=== PATIENT | female | born 1985 | race Caucasian/White ===

== ENCOUNTER → 2019-12-23 | Outpatient (CLI) | payer MEDICAID ==
[2019-12-23 12:39] LABS: EOSINOPHILS % (AUTO) 1 % (0-10); HEMATOCRIT 40 % (35-52); HEMOGLOBIN 13.7 G/DL (11.5-16.0); LYMPHOCYTES % (AUTO) 27 % (12-44); MEAN CORPUSCULAR HEMOGLOBIN 30 PG (25-34); MEAN CORPUSCULAR HGB CONC 35 G/DL (32-36); MEAN CORPUSCULAR VOLUME 88 FL (80-99); MEAN PLATELET VOLUME 10.1 FL (7.4-10.4); MONOCYTES % (AUTO) 5 % (0-12); NEUTROPHILS % (AUTO) 67 % (42-75); PLATELET COUNT 244 10^3/uL (130-400); RED CELL DISTRIBUTION WIDTH 12.5 % (10.0-14.5); WHITE BLOOD COUNT 8.1 10^3/uL (4.3-11.0)
[2019-12-23 12:40] LABS: BASOPHILS % (AUTO) 0 % (0-10); EOSINOPHILS # (AUTO) 0.1 10^3/uL (0.0-0.3); LYMPHOCYTES # (AUTO) 2.2 X 10^3 (1.0-4.0); MONOCYTES # (AUTO) 0.4 X 10^3 (0.0-1.0); NEUTROPHILS # (AUTO) 5.5 X 10^3 (1.8-7.8)
== END ==
LOC: LAB FS 10:57
PROVIDERS: ATTEND Family Medicine
DX: Z34.90 Encounter for supervision of normal pregnancy, unspecified, unspecified trimester (principal)
CPT/HCPCS: 36415; 80055; 86703; 87088

== ENCOUNTER → 2020-01-19 | Outpatient (CLI) | payer MEDICAID | LOC: LABNPT 15:10 | PROVIDERS: ATTEND Family Medicine | DX: Z34.80 Encounter for supervision of other normal pregnancy, unspecified trimester (principal) | CPT/HCPCS: 87491; 87591 ==

== ENCOUNTER 2020-02-08 15:05 | Emergency (ER) | payer MEDICAID ==
[~2020-02-08] VITALS: Ht 157.5 cm; Wt 58.1 kg
--- OUTSIDE RECORDS SUMMARY | 2020-02-08 15:12 | XMS REPORT | Continuity of Care Document ---
Author Organization Unknown Address Unknown Phone Unavailable Allergies There is no data. Medications There is no data. Problems Date Dx Coded Attending Type Code Diagnosis Diagnosed By 12/24/2019 ALMA ROSA GAUTHIER MD Ot Z34.90 ENCNTR FOR SUPRVSN OF NORMAL , 01/06/2020 ALMA ROSA GAUTHIER MD Ot Z34.90 ENCNTR FOR SUPRVSN OF NORMAL , 01/21/2020 ALMA ROSA GAUTHIER MD Ot Z34.80 ENCOUNTER FOR SUPRVSN OF NORMAL PREGNANC 01/22/2020 ALMA ROSA GAUTHIER MD Ot Z34.80 ENCOUNTER FOR SUPRVSN OF NORMAL PREGNANC Procedures There is no data. Results Test Result Range HSV 1/2 IGG,TYPE SPECIFIC AB HERPESELECT - 10/14/19 00:00 HSV 1 IGG, TYPE SPECIFIC AB 1.55 index N RG HSV 2 IGG, TYPE SPECIFIC AB <0.90 index NRG CULTURE, VIRAL (HSV W/TYPING) - 10/15/19 13:00 SOURCE: VAGINAL NRG HSV CULTURE: NOT ISOLATED NRG Chlamydia trachomatis DNA detection by p robe and signal amplification method - 01/19/20 15:11 Chlamydia trachomatis DNA detection by p robe and target amplification method Not Detected Not Detected Neisseria gonorrhoeae DNA detection by p robe and signal amplification method - 01/19/20 15:11 Gonorrhea amp DNA-urine Not Detected No t Detected Encounters ACCT No. Visit Date/Time Discharge Status Pt. Type Provider Facility Loc./Unit Complaint [id number] 12/23/2019 10:00:00 12/23/2019 23:59: 59 CLS Outpatient COSMO CHILDS [facility] [id number] 10/15/2019 12:30:00 Document Registration [id number] 10/14/2019 16:00:00 Document Registration [id number] 01/19/2020 15:10:00 020 23:59:59 CLS Outpatient ALMA ROSA GAUTHIER MD [facility] LABNPT [id number] 12/23/2019 10:57:00 020 23:59:59 CLS Outpatient ABRAHAN MCMAHAN, ALMA ROSA Li [facility] LAB FS SUPERVISION OF DANNY SALDANA [id number] 02/08/2020 15:08:[address] Emergency YOVANA STROUD DO [facility] ojshua ER 16 WKS PREG/FALL/FLUID LOSS
[2020-02-08 16:08] LABS: BILIRUBIN,URINE NEGATIVE (NEGATIVE); CLARITY,URINE CLEAR; COLOR,URINE YELLOW; GLUCOSE, URINE (UA) NEGATIVE (NEGATIVE); KETONES,URINE NEGATIVE (NEGATIVE); LEUKOCYTE ESTERASE ,URINE NEGATIVE (NEGATIVE); NITRITE,URINE NEGATIVE (NEGATIVE); PH,URINE 7.5 (5-9); PROTEIN,URINE NEGATIVE (NEGATIVE)
--- NOTE | 2020-02-08 16:13 | ED Fall/Injury ---
General Chief Complaint: Trauma-Non Activation Stated Complaint: 16 WKS PREG/FALL/FLUID LOSS Nursing Triage Note: FELL AT WORK AND HIT HEAD, BACK, COCCYX. 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 LMP--UNSURE, STATES EDC IS 07/26/20 PT IS AB 1 HAS HAD BACK PROBLEMS "BULGING DISCS" OB: DR. GAUTHIER--LAST VISIT 2-3 WEEKS AGO, HAD ULTRASOUND LAST WEEK. NEXT APPOINTMENT IS IN 1 WEEK 02/15/20 PCP: DR. COSMO CHILDS, [facility] Allergies and Home Medications Allergies Coded Allergies: No Known Drug Allergies (Unverified , 02/08/20) Patient Home Medication List Home Medication List Reviewed: Yes Review of Systems Review of Systems Constitutional: no symptoms reported Eyes: No Symptoms Reported Ears, Nose, Mouth, Throat: no symptoms reported Respiratory: no symptoms reported Cardiovascular: no symptoms reported Gastrointestinal: no symptoms reported Genitourinary: see HPI : Yes Expected Date of Delivery: Jul 26, 2020 Musculoskeletal: see HPI Skin: no symptoms reported Psychiatric/Neurological: No Symptoms Reported Past Xclawsj-Gnopsk-Hobuji Hx Past Med/Social Hx: Reviewed and Corrections made Patient Social History Alcohol Use: Denies Use Recreational Drug Use: No Smoking Status: Never a Smoker 2nd Hand Smoke Exposure: Yes Recent Foreign Travel: No Contact w/Someone Who Travel: No Recent Infectious Disease Expo: No Recent Hopitalizations: No Physical Abuse: No Sexual Abuse: No Mistreated: No Fear: No Seasonal Allergies Seasonal Allergies: No Past Medical History Surgeries: Yes Section Respiratory: No Cardiac: No Neurological: No Hx : 4 Hx Para: 2 Hx Total # of Abortions (Sp): 1 (NO D&C) Reproductive Disorders: No Genitourinary: No Gastrointestinal: No Musculoskeletal: Yes (BULGING DISC) Degenerate Disk Disease Endocrine: No HEENT: No Cancer: No Psychosocial: No Integumentary: No Blood Disorders: No Physical Exam Vital Signs Vital Signs - First Documented 02/08/20 15:25 Temp 36.7 Pulse 92 Resp 18 B/P (MAP) 102/73 (83) O2 Delivery Room Air Capillary Refill : Less Than 3 Seconds Height, Weight, BMI Height: '" Weight: lbs. oz. kg; 23.00 BMI Method: General Appearance: WD/WN, no apparent distress, other (WALKS UPRIGHT AND MOVES WITHOUT DIFFICULTY) HEENT: PERRL/EOMI, normal ENT inspection, other (NO EXTERNAL EVIDENCE OF TRAUMA TO HEAD) Neck: non-tender, full range of motion, supple, normal inspection Cardiovascular: normal peripheral pulses, regular rate, rhythm, no edema, no JVD, no murmur Respiratory: chest non-tender, normal breath sounds, no respiratory distress, no accessory muscle use Gastrointestinal: normal bowel sounds, non tender, soft, other (GRAVID UTERUS 3 FB'S BELOW UMBILICUS; FHT'S 162) Pelvic: normal external exam, discharge (SMALL AMOUNT OF NORMAL APPEARING WHITE DISCHARGE); No tender w/ cervical motion, No tender adnexa, No tender uterus, No vaginal bleeding; other (NITRAZINE/AMNIO TEST NEGATIVE) Back: no CVA tenderness, other (TENDERNESS TO LEFT SI JOINT AREA. NO EXTERNAL E VIDENCE OF TRAUMA) Extremities: normal range of motion, non-tender, normal inspection, no pedal edema, no calf tenderness, normal capillary refill Neurologic/Psychiatric: score caller II-XII nml as tested, no motor/sensory deficits, alert, normal mood/affect, oriented x 3 Skin: normal color, warm/dry [place] Coma Score Best Eye Response: (4) Open Spontaneously Best Verbal Response: (5) Oriented Best Motor Response: (6) Obeys Commands Talon Total: 15 Progress/Results/Core Measures Results/Orders Lab Results Laboratory Tests Test 02/08/20 15:57 Range/Units Urine Color YELLOW Urine Clarity CLEAR Urine pH 7.5 5-9 Urine Specific [place] 1.010 L 1.016-1.022 Urine Protein NEGATIVE NEGATIVE Urine Glucose (UA) NEGATIVE NEGATIVE Urine Ketones NEGATIVE NEGATIVE Urine Nitrite NEGATIVE NEGATIVE Urine Bilirubin NEGATIVE NEGATIVE Urine Urobilinogen 0.2 < = 1.0 MG/DL Urine Leukocyte Esterase NEGATIVE NEGATIVE Urine RBC (Auto) NEGATIVE NEGATIVE Urine RBC NONE /HPF Urine WBC NONE /HPF Urine Squamous Epithelial Cells 5-10 /HPF Urine Crystals NONE /LPF Urine Bacteria TRACE /HPF Urine Casts NONE /LPF Urine Mucus NEGATIVE /LPF Urine Culture Indicated NO My Orders Orders - YOVANA STROUD DO Ua Culture If Indicated (02/08/20 16:02) Heart Tones (02/08/20 16:05) Amnio Test (02/08/20 16:05) Vital Signs/I&O 02/08/20 15:25 Temp 36.7 Pulse 92 Resp 18 B/P (MAP) 102/73 (83) O2 Delivery Room Air Blood Pressure Mean: 83 Progress Progress Note : Progress Note FHT'S 162 NITRAZINE/AMNIO TEST--NEGATIVE. Departure Impression Primary Impression: Status post fall Additional Impressions: SACRAL-COCCYX INJURY Pain of left sacroiliac joint 16 weeks gestation of Disposition: 01 HOME, SELF-CARE Condition: Stable Departure-Patient Inst. Referrals: COSMO CHILDS MD (PCP) Primary Care Physician ALMA ROSA GAUTHIER MD (Family) Primary Care Physician Patient Instructions: Coccyx Injury (DC), Sacroiliac Joint Pain (DC), Preventing Falls, Activity During Add. Discharge Instructions: ICE TO SORE AREA AT 20 MINUTE INTERVALS TYLENOL NEEDED FOR PAIN FOLLOW UP WITH YOUR DR IN 1-2 DAYS FOR RECHECK FOLLOW UP WITH [facility] TOMORROW FOR RECHECK All discharge instructions reviewed with patient and/or family. Voiced understanding. Work/School Note: Work Release Form Date Seen in the Emergency Department: February 08, 2020 Restrictions: Need Release from Doctor YOVANA STROUD DO February 08, 2020 16:13
[2020-02-08 16:18] LABS: BACTERIA,URINE TRACE /HPF
[2020-02-08 16:54] VITALS: BP 119/67
== END 2020-02-08 16:54 | disposition home or self-care (01) ==
LOC: EDUNIT# 15:05 → ER 15:08
DX: O9A.212 Injury, poisoning and certain other consequences of external causes complicating pregnancy, second trimester (principal); S33.2XXA Dislocation of sacroiliac and sacrococcygeal joint, initial encounter; R40.2142 Coma scale, eyes open, spontaneous, at arrival to emergency department; R40.2252 Coma scale, best verbal response, oriented, at arrival to emergency department; R40.2362 Coma scale, best motor response, obeys commands, at arrival to emergency department; Z77.22 Contact with and (suspected) exposure to environmental tobacco smoke (acute) (chronic); Z3A.16 16 weeks gestation of pregnancy; W01.198A Fall on same level from slipping, tripping and stumbling with subsequent striking against other object, initial encounter
CPT/HCPCS: 81000

== ENCOUNTER 2020-04-28 17:40 | Outpatient (CLI) | payer MEDICAID ==
[~2020-04-28] VITALS: Ht 157.5 cm; Wt 62.3 kg
[2020-04-28 17:45] VITALS: BP 118/60
--- NOTE | 2020-04-28 17:47 | NUR ---
NIMA GLEZ presented to unit via AMB from HOME, accompanied by MOTHER, with c/o CONTRACTIONS. NIMA GLEZ weighed, gowned, UNABLE TO VOID and to bed. 1748 EF and PRICILLAO applied, VS taken. NIMA GLEZ oriented to bed controls, call light, TV, heat, and A/C controls.
[2020-04-28 18:00] VITALS: BP 118/60
[2020-04-28 18:24] LABS: BILIRUBIN,URINE NEGATIVE (NEGATIVE); CLARITY,URINE CLEAR; COLOR,URINE YELLOW; GLUCOSE, URINE (UA) NEGATIVE (NEGATIVE); KETONES,URINE TRACE (NEGATIVE); LEUKOCYTE ESTERASE ,URINE NEGATIVE (NEGATIVE); NITRITE,URINE NEGATIVE (NEGATIVE); PROTEIN,URINE NEGATIVE (NEGATIVE)
[2020-04-28] MEDS ORDERED: PREN1TAB79 PO (18:25)
[2020-04-28] MEDS ORDERED: BUSP5TAB59 PO (18:25)
--- NOTE | 2020-04-28 18:27 | NUR ---
AMNIO SWAB PERFORMED AND NEGATIVE. SVE BY JOSE MARTIN HAYNES RN. EXT OS 1 CM/ THICK/INTERNAL OS CLOSED. FHR ARRHYTHMIA NOTED. FHR 135. CTXS IRREGULAR Q 3-16 MIN/ 40-120 SEC DURATION/MILD TO PALPATION.
[2020-04-28 18:30] VITALS: BP 118/60
[2020-04-28 18:33] LABS: BACTERIA,URINE TRACE /HPF
--- NOTE | 2020-04-28 18:37 | NUR ---
DR. FREGOSO CALLED DR GAUTHIER REGARDING PT ARRIVAL, IRREGULAR CTXS, AND FHR TRACING. ORDERS RECEIVED.
[2020-04-28] MEDS ORDERED: LACTATED RINGERS 1,000 ML IV SCH (18:45)
--- NOTE | 2020-04-28 18:46 | NUR ---
1000 CC LR STARTED IV WITH #20G INTRACATH TRA W/O RATE. SITE CLEAR.
[2020-04-28 18:50] VITALS: BP 116/58
--- NOTE | 2020-04-28 19:00 | NUR ---
UTERINE IRRITABILITY WITH OCC CTX NOTED. FHR 135. NOTICEABLE DECREASE IN FHR ARRHYTHMIA.
--- NOTE | 2020-04-28 19:05 | NUR ---
UP TO THE BATHROOM. + VOID.
[2020-04-28] MEDS ORDERED: ONDANSETRON 4 MG/2 ML (SDV) Z0FRAN ONE (20:27)
[2020-04-28] MEDS ORDERED: ONDANSETRON 4 MG/2 ML (SDV) Z0FRAN IVP ONE (20:30)
[2020-04-28] MEDS ORDERED: TERBUTALINE INJ 1 MG/ML (BRETHINE) AMP ONE (21:31)
[2020-04-28] MEDS ORDERED: hydrOXYzine (VISTARIL/ATARAX) 25 MG capsule/tablet ONE (21:32)
[2020-04-28 21:35] VITALS: BP 96/58
[2020-04-28] MEDS ORDERED: hydrOXYzine (VISTARIL/ATARAX) 25 MG capsule/tablet PO ONE (21:45)
[2020-04-28] MEDS ORDERED: TERBUTALINE INJ 1 MG/ML (BRETHINE) AMP SC ONE (21:45)
[2020-04-28] MEDS ORDERED: CITRIC ACID/SOB CIT (BICITRA) 30 ML UDC ONE (21:48)
[2020-04-28] MEDS: LACTATED RINGERS 1,000 ML IV SCH (21:53)
--- NOTE | 2020-04-28 21:54 | OB Triage Report ---
Standard Progress Note Progress Notes/Assess & Plan Date Seen by a Provider: Apr 28, 2020 Time Seen by a Provider: 17:45 Expected Date of Delivery: Jul 26, 2020 Gestational Age in Weeks: 27 Gestational Age in Days: 2 LMP/FLOWER Comment: FLOWER: 07/26/2020 Progress/Assessment & Plan Assessment: Uterine contractions, pre-term Nausea Anxiety RUQ abdominal pain Yu Mancia is a 35yo at 27w2d who presents to OB triage for abdominal pain. Tocolytic given, contractions subsided. RUQ ttp while in triage, patient to stay for RUQ abdominal ultrasound and pre-eclampsia workup. Plan: Observe overnight RUQ Abd US ordered HELLP labs LDH, uric acid, Pr/Cr s/p 1L LR bolus followed by 125ml/hr Hydroxyzine Terbutaline Dicyclomine Zofran HPI: Yu Mancia is a 35 yo at 27w2d without significant history who presented to OB triage with concerns for contractions given progressive abdominal pain that began earlier this afternoon at work. She has been working outside and feels very dehydrated. She also has symptoms of urinary frequency. She denies fever, vision changes, shortness of breath, chest pain/pressure, RUQ pain, dysuria, or LE swelling. -LOF, -VB, +FM, +CTX Interval history @ 2129: Patient now stating she is feeling very cold, she has full body aches. She endorses nausea and indigestion, requesting medications. VSS, UA negative for UTI. Contractions q2-11/23, terbutaline ordered and administered at 2144. Interval history @ 0: Pt sleeping in bed comfortably. Interval history @ 2244: Patient requesting to go home. Asked to stay and be monitored for 2 hours after terbutaline. Interval history @ 2344: s/p 2hr terbutaline. Patient endorsing return of abdominal pain. RUQ ttp. Ordered pre-eclampsia labs and RUQ US. Objective: Vitals: temp 36.6, HR 86, RR 18, BP 118/60, SpO2 97% General: NAD. Resting comfortably in bed HEENT: NCAT. EOMI. CV: RRR, peripheral pulses palpable Pulm: Nonlabored respirations Abd: Gravid, nonTTP, recheck @ 5 RUQ pain Ext: LE nonTTP, no edema SVE: 1/thick, soft consistency/high FHR: 140s, reactive; recheck @ 2345: 150s, reactive TOCO: 2-11/23, recheck @ 2345: 09/[address] Harrison. Diagnosis/Problems Diagnosis/Problems (1) contractions Status: Acute Assessment & Plan: - 1L LR bolus followed by 125ml/hr - Terbutaline (2) 27-28 completed weeks of gestation Assessment & Plan: - Discharge home on strict return precautions - Follow up with Dr. Harrison's office (3) RUQ pain Status: Acute Assessment & Plan: - RUQ Abdominal US and pre-eclampsia labs ordered ELISEO FREGOSO MD Apr 28, 2020 21:54
--- NOTE | 2020-04-28 21:55 | NUR ---
Pt requesting something for indigestion. notified order for bicitra received. Pt unable to tolerate full dose. Began to have dry heave
[2020-04-28] MEDS ORDERED: CITRIC ACID/SOB CIT (BICITRA) 30 ML UDC PO ONE (22:00)
[2020-04-28 23:00] VITALS: BP 85/47
--- NOTE | 2020-04-28 23:00 | NUR ---
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 Told pt that the dr would like her to stay until 2345. Pt is agreeable to plan.
[2020-04-29] VITALS: BP 99/55
--- NOTE | 2020-04-29 | NUR ---
RN went into room to discuss discharge. pt states that she is starting to feel pressure in her abdomen again. RN palpated abdomen to check toco placement. patient tensed in pain when palpating right quadrant. notified of new finding. labs ordered. Plan of care discussed with pt. Pt verbalized understanding.
[2020-04-29 00:25] LABS: BASOPHILS % (AUTO) 0 % (0-10); EOSINOPHILS % (AUTO) 0 % (0-10); HEMATOCRIT 33 % (35-52); HEMOGLOBIN 11.4 G/DL (11.5-16.0); LYMPHOCYTES % (AUTO) 7 % (12-44); MEAN CORPUSCULAR HEMOGLOBIN 31 PG (25-34); MEAN CORPUSCULAR HGB CONC 35 G/DL (32-36); MEAN CORPUSCULAR VOLUME 91 FL (80-99); MONOCYTES # (AUTO) 0.5 X 10^3 (0.0-1.0); MONOCYTES % (AUTO) 4 % (0-12); NEUTROPHILS # (AUTO) 12.9 X 10^3 (1.8-7.8); NEUTROPHILS % (AUTO) 89 % (42-75); PLATELET COUNT 196 10^3/uL (130-400); RED CELL DISTRIBUTION WIDTH 12.7 % (10.0-14.5); WHITE BLOOD COUNT 14.4 10^3/uL (4.3-11.0)
--- NOTE | 2020-04-29 00:30 | NUR ---
Report received from Zaire Sebastian rn.
[2020-04-29 00:47] LABS: ANISOCYTOSIS SLIGHT; ATYPICAL LYMPHOCYTES 3 %; BAND NEUTROPHILS 3 %; LYMPHOCYTES % (MANUAL) 8 %; MONOCYTES % (MANUAL) 2 %; NEUTROPHILS % (MANUAL) 84 %
[2020-04-29 00:52] LABS: ALANINE AMINOTRANSFERASE 11 U/L (0-55); ALBUMIN 3.3 GM/DL (3.2-4.5); ALKALINE PHOSPHATASE 57 U/L (40-136); BILIRUBIN,TOTAL 0.3 MG/DL (0.1-1.0); BUN/CREATININE RATIO 9; CALCIUM 8.1 MG/DL (8.5-10.1); CARBON DIOXIDE 19 MMOL/L (21-32); CHLORIDE 106 MMOL/L (98-107); CREATININE SERUM 0.56 MG/DL (0.60-1.30); GFR ESTIMATED > 60; GLUCOSE 130 MG/DL (70-105); POTASSIUM 3.3 MMOL/L (3.6-5.0); SODIUM 136 MMOL/L (135-145); TOTAL PROTEIN 5.7 GM/DL (6.4-8.2); URIC ACID 3.9 MG/DL (2.6-7.2)
[2020-04-29 01:14] LABS: URINE CREATININE FOR RATIO 20 MG/DL (30-125)
[2020-04-29 01:34] LABS: URINE PROTEIN FOR RATIO ONLY < 6 MG/DL (6-12)
[2020-04-29 02:30] VITALS: BP 98/50
[2020-04-29] MEDS: LACTATED RINGERS 1,000 ML IV SCH (04:42)
[2020-04-29 04:45] VITALS: BP 98/49
--- NOTE | 2020-04-29 07:30 | NUR ---
Dr. Harrison here to see pt. Plan to update after US for further orders.
--- NOTE | 2020-04-29 08:00 | NUR ---
US at bedside.
--- NOTE | 2020-04-29 08:43 | Diagnostic Imaging Report ---
PROCEDURE: US Gallbladder. TECHNIQUE: Multiple real-time grayscale images were obtained over the right upper quadrant in various projections. INDICATION: Right upper quadrant pain. The liver is normal in size at 16.2 cm. No discrete liver mass is detected. The portal vein is patent and shows normal directional flow. Gallbladder is without stones or sludge. No wall thickening or biliary duct dilatation is identified. Pancreas is unremarkable. Aorta is nonaneurysmal. IVC is patent. Right kidney is without calculi or hydronephrosis. There is no ascites. IMPRESSION: Unremarkable gallbladder ultrasound. Dictated by: Dictated on workstation # [id number]
--- NOTE | 2020-04-29 08:45 | Diagnostic Imaging Report ---
INDICATION: 27 weeks with contractions. The study is performed to evaluate cervical length. Limited obstetric ultrasound was performed. Cervical length is 5.8 cm. IMPRESSION: Cervical length 5.8 cm. Dictated by: Dictated on workstation # [id number]
--- NOTE | 2020-04-29 09:20 | NUR ---
US results reports to Dr. Harrison. Discharge orders rec'd.
[2020-04-29 09:30] VITALS: BP 97/54
--- NOTE | 2020-04-29 09:37 | History & Physical-OB ---
OB - Chief Complaint & HPI Date/Time Date of Admission: Date of Admission: Date seen by a Provider: Apr 29, 2020 Time Seen by a Provider: 07:30 Chief Complaint/History OB-Reason for Admission/Chief: contractions and epigastric pain Hx : 4 Hx Para: 2 Expected Date of Delivery: Jul 26, 2020 Gestational Age in Weeks: 27 Gestational Age in Days: 2 Allergies and Home Medications Allergies Coded Allergies: No Known Drug Allergies (Unverified , 02/08/20) Home Medications Buspirone HCl 5 Mg Tablet, 5 MG PO TID, (Reported) Vit W-Ca,Fe,FA(<1 mg) 1 Each Tablet, 1 EACH PO DAILY, (Reported) Patient Home Medication List Home Medication List Reviewed: Yes OB - History Hx of Present Care: Yes Ultrasounds: Normal mid trimester US Obstetrical Complications: None Medical Complications: None Obstetrical History Hx : 4 Hx Para: 2 Hx Total # of Abortions (Spona: 1 Patient Past Medical History anxiety Social History/Family History Alcohol Use: Denies Use Recreational Drug Use: No 2nd Hand Smoke Exposure: No OB - Admission Exam Physical Exam Vitals: Vital Signs 04/28/20 04/29/20 18:30 04:45 Temp 36.8 Pulse 94 Resp 16 B/P (MAP) 98/49 (65) Pulse Ox 97 O2 Delivery Room Air HEENT: NCAT Abdomen: Gravid Extremities: Normal Cervical Dilatation: Fingertip Heart Rate: 120's Accelerations: Accelerations Present Decelerations: No Decelerations Short Term Variability: Present Group Home Variability: Average (6-25) Labs Laboratory Tests Test 04/28/20 18:10 04/29/20 00:15 Range/Units Urine Color YELLOW Urine Clarity CLEAR Urine pH 6.0 5-9 Urine Specific [place] <=1.005 1.016-1.022 Urine Protein < 6 L 6-12 MG/DL Urine Glucose (UA) NEGATIVE NEGATIVE Urine Ketones TRACE H NEGATIVE Urine Nitrite NEGATIVE NEGATIVE Urine Bilirubin NEGATIVE NEGATIVE Urine Urobilinogen 0.2 < = 1.0 MG/DL Urine Leukocyte Esterase NEGATIVE NEGATIVE Urine RBC (Auto) NEGATIVE NEGATIVE Urine RBC NONE /HPF Urine WBC NONE /HPF Urine Squamous Epithelial Cells 2-5 /HPF Urine Crystals NONE /LPF Urine Bacteria TRACE /HPF Urine Casts NONE /LPF Urine Mucus NEGATIVE /LPF Urine Culture Indicated NO Urine Creatinine 20 L 30-125 MG/DL Urine Protein/Creatinine Ratio White Blood Count 14.4 H 4.3-11.0 10^3/uL Red Blood Count 3.62 L 4.35-5.85 10^6/uL Hemoglobin 11.4 L 11.5-16.0 G/DL Hematocrit 33 L 35-52 % Mean Corpuscular Volume 91 80-99 FL Mean Corpuscular Hemoglobin 31 25-34 PG Mean Corpuscular Hemoglobin Concent 35 32-36 G/DL Red Cell Distribution Width 12.7 10.0-14.5 % Platelet Count 196 130-400 10^3/uL Mean Platelet Volume 10.0 7.4-10.4 FL Neutrophils (%) (Auto) 89 H 42-75 % Lymphocytes (%) (Auto) 7 L 12-44 % Monocytes (%) (Auto) 4 0-12 % Eosinophils (%) (Auto) 0 0-10 % Basophils (%) (Auto) 0 0-10 % Neutrophils # (Auto) 12.9 H 1.8-7.8 X 10^3 Lymphocytes # (Auto) 1.0 1.0-4.0 X 10^3 Monocytes # (Auto) 0.5 0.0-1.0 X 10^3 Eosinophils # (Auto) 0.0 0.0-0.3 10^3/uL Basophils # (Auto) 0.0 0.0-0.1 10^3/uL Neutrophils % (Manual) 84 % Lymphocytes % (Manual) 8 % Monocytes % (Manual) 2 % Band Neutrophils 3 % Atypical Lymphocytes 3 % Anisocytosis SLIGHT Sodium Level 136 135-145 MMOL/L Potassium Level 3.3 L 3.6-5.0 MMOL/L Chloride Level 106 98-107 MMOL/L Carbon Dioxide Level 19 L 21-32 MMOL/L Anion Gap 11 5-14 MMOL/L Blood Urea Nitrogen 5 L 7-18 MG/DL Creatinine 0.56 L 0.60-1.30 MG/DL Estimat Glomerular Filtration Rate > 60 BUN/Creatinine Ratio 9 Glucose Level 130 H 70-105 MG/DL Uric Acid 3.9 2.6-7.2 MG/DL Calcium Level 8.1 L 8.5-10.1 MG/DL Corrected Calcium 8.7 8.5-10.1 MG/DL Total Bilirubin 0.3 0.1-1.0 MG/DL Aspartate Amino Transf (AST/SGOT) 13 5-34 U/L Alanine Aminotransferase (ALT/SGPT) 11 0-55 U/L Alkaline Phosphatase 57 40-136 U/L Lactate Dehydrogenase 117 L 125-220 U/L Total Protein 5.7 L 6.4-8.2 GM/DL Albumin 3.3 3.2-4.5 GM/DL OB - Assessment/Plan/Diagnosis Assessment Admission Dx contractions and GERD Admission Status: Other (Outpt Proc) Reason for Inpatient Admission: Outpatient OB ED Plan Problems: (1) RUQ pain Assessment & Plan: Likely due to GERD has not recurred since hydroxyzine, bicitra, zofran, fluids. No pain at this time. Negative ultrasound of gallbladder. Will call in protonix and carafate to home pharmacy. (2) contractions Assessment & Plan: These have resolved. Very mild irregular contractions on strip. One dose of terb. Cervical length on ultrasound is 5.8 cm. No fibronectin or steroids done at this time. ALMA ROSA GAUTHIER MD Apr 29, 2020 09:37
--- NOTE | 2020-04-29 09:47 | NUR ---
Discharge instructions explained to pt with copy provided to pt. Pt notified of scripts sent to [facility] per Dr. Harrison. Pt verbalizes understanding of instructions and signs to verify. Pt denies questions or concerns. Ambulates off unit to private vehicle accompanied by mom.
== END 2020-04-29 09:50 | disposition home or self-care (01) ==
LOC: LDRP 17:40 → WSo 17:40
PROVIDERS: ATTEND Family Medicine
DX: O62.9 Abnormality of forces of labor, unspecified (principal); Z3A.27 27 weeks gestation of pregnancy
CPT/HCPCS: 76705; 76815; 80053; 81000; 82570; 83615; 84156; 84550; 85007; 85027; 96361 ×2; 96372; 96374; G0463; 36415; 99214

== ENCOUNTER → 2020-07-05 | Outpatient (CLI) | payer MEDICAID ==
[~2020-07-05] MED LIST: BUSP5TAB59 PO; PREN1TAB79 PO
== END ==
LOC: LABNPT 14:50
PROVIDERS: ATTEND Family Medicine
DX: Z34.83 Encounter for supervision of other normal pregnancy, third trimester (principal)
CPT/HCPCS: 87081

== ENCOUNTER 2020-07-13 05:37 | Outpatient (RCR) | payer MEDICAID ==
[~2020-07-13] VITALS: Ht 157.5 cm; Wt 67.3 kg
[2020-07-13] MEDS ORDERED: BUSP10TA95 PO (10:43)
[2020-07-13] MEDS ORDERED: HYDR-700 PO (10:43)
== END 2020-07-13 11:03 | disposition home or self-care (01) ==
LOC: PREOP 05:37
PROVIDERS: ATTEND Obstetrics & Gynecology
DX: Z01.818 Encounter for other preprocedural examination (principal)

== ENCOUNTER → 2020-07-18 | Outpatient (CLI) | payer MEDICAID ==
[~2020-07-18] MED LIST changes: +BUSP10TA95 PO; +HYDR-700 PO
== END ==
LOC: LAB FS 08:25
PROVIDERS: ATTEND Obstetrics & Gynecology
DX: Z01.812 Encounter for preprocedural laboratory examination (principal); Z20.828 Contact with and (suspected) exposure to other viral communicable diseases
CPT/HCPCS: 87635

== ENCOUNTER 2020-07-20 09:15 | Inpatient (IN) | payer MEDICAID ==
[2020-07-20] VITALS (10 sets, daily range): BP systolic 101–119; BP diastolic 62–83
[~2020-07-20] VITALS: Ht 157 cm; Wt 66.0 kg
--- NOTE | 2020-07-20 10:23 | NUR ---
NIMA GLEZ presented to unit via from ED for repeat , accompanied by sister , with c/o PREVIOUS. NIMA GLEZ weighed, gowned, voided, and to bed. EFHM and TOCO applied, VS taken. NIMA GLEZ oriented to bed controls, call light, TV, heat, and A/C controls.
[2020-07-20] MEDS ORDERED: LACTATED RINGERS 1,000 ML IV SCH ×2 (11:09)
[2020-07-20] MEDS ORDERED: CITRIC ACID/SOB CIT (BICITRA) 30 ML UDC ONE (11:13)
[2020-07-20] MEDS ORDERED: METOCLOPRAMIDE INJ 10 MG/2 ML (REGLAN) ONE (11:13)
[2020-07-20] MEDS ORDERED: FAMOTIDINE 20MG/2ML IV (PEPCID) ONE (11:13)
[2020-07-20] MEDS ORDERED: CITRIC ACID/SOB CIT (BICITRA) 30 ML UDC PO ONE (11:15)
[2020-07-20] MEDS ORDERED: FAMOTIDINE 20MG/2ML IV (PEPCID) IV ONE (11:15)
[2020-07-20] MEDS ORDERED: METOCLOPRAMIDE INJ 10 MG/2 ML (REGLAN) IV ONE (11:15)
[2020-07-20] MEDS ORDERED: ceFAZolin 2 GM IV Premixed 50 ML IV ONE (11:15)
[2020-07-20 11:23] LABS: BASOPHILS % (AUTO) 1 % (0-10); EOSINOPHILS % (AUTO) 1 % (0-10); HEMATOCRIT 38 % (35-52); HEMOGLOBIN 12.9 g/dL (11.5-16.0); LYMPHOCYTES % (AUTO) 24 % (12-44); MEAN CORPUSCULAR HEMOGLOBIN 31 pg (25-34); MEAN CORPUSCULAR HGB CONC 34 g/dL (32-36); MEAN CORPUSCULAR VOLUME 92 fL (80-99); MEAN PLATELET VOLUME 10.7 fL (9.0-12.2); MONOCYTES # (AUTO) 0.5 10^3/uL (0.0-1.0); MONOCYTES % (AUTO) 6 % (0-12); NEUTROPHILS # (AUTO) 5.8 10^3/uL (1.8-7.8); NEUTROPHILS % (AUTO) 69 % (42-75); PLATELET COUNT 200 10^3/uL (130-400); WHITE BLOOD COUNT 8.4 10^3/uL (4.3-11.0)
[2020-07-20] MEDS ORDERED: fentaNYL INJECTION 100 MCG/2 ML AMP ONE (11:33)
[2020-07-20] MEDS ORDERED: OXYTOCIN PRE-MIX DRIP 1,000 ML IV ONE (11:34)
[2020-07-20] MEDS ORDERED: OXYTOCIN PRE-MIX DRIP 500 ML IV SCH (12:03)
--- NOTE | 2020-07-20 12:03 | History & Physical-OB ---
OB - Chief Complaint & HPI Date/Time Date of Admission: Date of Admission: Jul 20, 2020 at 10:15 am Date seen by a Provider: Jul 20, 2020 Time Seen by a Provider: 12:00 Chief Complaint/History OB-Reason for Admission/Chief: Section Hx : 4 Hx Para: 2 Expected Date of Delivery: Jul 26, 2020 Gestational Age in Weeks: 39 Gestational Age in Days: 1 Indication for : desires repeat Other reason for admission: Patient had care with Dr. Harrison I was consulted for [facility] Admission Nurse Assessment Rev: Yes Allergies and Home Medications Allergies Coded Allergies: No Known Drug Allergies (Unverified , 02/08/20) Home Medications Buspirone HCl 10 Mg Tablet, 10 MG PO TID, (Reported) Hydroxyzine HCl 25 Mg Tablet, 25 MG PO HS, (Reported) Vit W-Ca,Fe,FA(<1 mg) 1 Each Tablet, 1 EACH PO DAILY, (Reported) Patient Home Medication List Home Medication List Reviewed: Yes OB - History Hx of Present Care: Yes Ultrasounds: Normal mid trimester US Obstetrical Complications: None Medical Complications: None Patient Past Medical History anxiety Social History/Family History 2nd Hand Smoke Exposure: No OB - Admission Exam Physical Exam HEENT: NCAT Heart: Rhythm Normal Lungs: Clear Abdomen: Gravid Extremities: Normal Reflexes: Normal Heart Rate: 130's Accelerations: Accelerations Present Decelerations: No Decelerations Short Term Variability: Present Halfway Variability: Average (6-25) Contractions on Admission: 6-10 Minutes Apart Intensity: Mild Labs Laboratory Tests Test 07/20/20 10:55 Range/Units White Blood Count 8.4 4.3-11.0 10^3/uL Red Blood Count 4.11 3.80-5.11 10^6/uL Hemoglobin 12.9 11.5-16.0 g/dL Hematocrit 38 35-52 % Mean Corpuscular Volume 92 80-99 fL Mean Corpuscular Hemoglobin 31 25-34 pg Mean Corpuscular Hemoglobin Concent 34 32-36 g/dL Red Cell Distribution Width 13.2 10.0-14.5 % Platelet Count 200 130-400 10^3/uL Mean Platelet Volume 10.7 9.0-12.2 fL Immature Granulocyte % (Auto) 0 % Neutrophils (%) (Auto) 69 42-75 % Lymphocytes (%) (Auto) 24 12-44 % Monocytes (%) (Auto) 6 0-12 % Eosinophils (%) (Auto) 1 0-10 % Basophils (%) (Auto) 1 0-10 % Neutrophils # (Auto) 5.8 1.8-7.8 10^3/uL Lymphocytes # (Auto) 2.0 1.0-4.0 10^3/uL Monocytes # (Auto) 0.5 0.0-1.0 10^3/uL Eosinophils # (Auto) 0.0 0.0-0.3 10^3/uL Basophils # (Auto) 0.0 0.0-0.1 10^3/uL Immature Granulocyte # (Auto) 0.0 0.0-0.1 10^3/uL OB - Assessment/Plan/Diagnosis Assessment Assessment: section Admission Dx 35 yo @ 39.1 Previous Admission Status: Inpatient Order (span 2 midnights) Reason for Inpatient Admission: repeat Plan Plan: Section ROSA PENA DO Jul 20, 2020 12:03 pm
--- NOTE | 2020-07-20 12:13 | NUR ---
Ambulated to OR per surgery staff.
[2020-07-20] MEDS ORDERED: MEASLES,MUMPS,RUBELLA 1 EA INJ SC SCH (12:15)
[2020-07-20] MEDS ORDERED: ONDANSETRON 4 MG/2 ML (SDV) Z0FRAN IVP PRN (12:15)
[2020-07-20] MEDS ORDERED: TETANUS,DIPTH,PERTUSS P/F (BOOSTRIX) 0.5 ML VIAL IM SCH (12:15)
[2020-07-20] MEDS ORDERED: BUPIVACAINE 0.25% 30 ML (SENSORCAINE) VIAL ONE (12:32)
[2020-07-20] MEDS ORDERED: PHENYLEPHRINE 100 MCG/ML 10 ML (ANESTHESIA) SYR ONE (12:32)
--- NOTE | 2020-07-20 14:30 | NUR ---
To room 313 per bed
[2020-07-20] MEDS: KETOROLAC 30 MG/ML VIAL IV SCH ×2 (15:29→21:06)
--- NOTE | 2020-07-20 15:45 | NUR ---
Up to wheelchair and to nursery to see baby.
--- NOTE | 2020-07-20 16:30 | NUR ---
Back to room. Pad changed with moderate rubra flow. Tolerated activity well. Denies need to urinate.
--- NOTE | 2020-07-20 18:15 | NUR ---
Up to BR to void with assistance of Kathy Willoughby, clay house worker, washed perineum and legs in shower. Dressed and to nursery to see . Bed changed. Lortab 1 given for pain of 6.
[2020-07-20] MEDS ORDERED: HYDROcodone/APAP 5 MG/325 MG (LORTAB) TAB ONE (18:25)
[2020-07-20] MEDS: HYDROcodone/APAP 5 MG/325 MG (LORTAB) TAB PO PRN ×2 (18:27→23:20)
[2020-07-20] MEDS: DOCUSATE SODIUM 100 MG (COLACE) CAP PO SCH (21:06)
--- NOTE | 2020-07-20 23:42 | OPERATIVE REPORT ---
DATE OF SERVICE: 07/20/2020 PREOPERATIVE DIAGNOSES: 1. A 35-year-old G4, P2 at 39 weeks and 1 day gestation. 2. Previous section x2. POSTOPERATIVE DIAGNOSES: 1. A 35-year-old G4, P2 at 39 weeks and 1 day gestation. 2. Previous section x2. PROCEDURE: Repeat low transverse section. SURGEON: Juan Pena DO SURVEYOR GEOPHYSICAL PROSPECTING: Kelin Ritchie DNP, was necessary for manipulation and retraction throughout the procedure. ANESTHESIA: Spinal. ESTIMATED BLOOD LOSS: 400 mL. URINE OUTPUT: 50 mL clear at the end of the procedure. FLUIDS: Two liters of lactated Ringer's solution. FINDINGS: A live male infant, weight and Apgars pending. Grossly normal appearing uterus, bilateral fallopian tubes and ovaries. SPECIMEN SENT: None. INDICATIONS FOR PROCEDURE: This 35-year-old female patient who is consulted to my care from Dr. Harrison for repeat . Her care was uncomplicated with Dr. Harrison. She was scheduled for 39 weeks in the preoperative area and in the preoperative consultation, we discussed the risk of including risk of bleeding, infection, damage to surrounding structures including, but not limited to bowel, bladder, ureter, kidneys, possible need for reoperation, postoperative complications that may occur, recovery timeframe, risk from anesthesia and even . After everything was discussed with the patient in detail, consent was obtained in the preoperative area, the patient was taken to the operating room. OPERATIVE REPORT IN DETAIL: Once in the operating room, spinal analgesia was found to be adequate, placed in supine position with leftward tilt, prepped and draped in normal sterile fashion where a timeout was performed and anesthesia was tested. I then made a Pfannenstiel skin incision through the previous existing scar using knife and carried down to underlying fascia using Bovie cautery. The fascial incision extended laterally using Bovie cautery. Superior aspect of fascial incision was then grasped with Shan clamps, tented up and dissected off the underlying rectus muscles. The inferior aspect of the fascial incision was then grasped with Shan clamps, tented up and dissected off the underlying rectus muscles. Rectus muscles were then down the midline using traction, which exposed the peritoneum, which I entered bluntly and extended the peritoneal incision with blunt traction. I then placed an Stoney ring retractor within the peritoneal incision, which offers excellent lateral sidewall retraction. I then identified the lower uterine segment, which was found to be thinned out. I made a low transverse incision to the vesicouterine peritoneum and bluntly dissected off the lower uterine segment. I then proceeded with my myotomy until membranes were visualized and encountered. Clear fluid was noted at the time of rupture, I extended the uterine incision laterally and superiorly using bandage scissors. The was found in vertex presentation. With gentle fundal pressure, the 's head was elevated to the incision where the nares and oropharynx were bulb suctioned. Anterior and posterior shoulders were delivered. Infant was then brought to the operative field where the cord was doubly clamped and cut and infant handed off to waiting nurses in attendance. Cord blood was collected, 3-vessel cord with intact placenta was delivered spontaneously thereafter. IV Pitocin was initiated to facilitate uterine contraction. Uterine fundus confirmed by manual massage. Uterus was then exteriorized and cleared of all endometrial clots and debris. I then proceeded with closing the uterine incision using 0 Vicryl suture in running locked fashion. Second layer of imbricating 0 Monocryl was placed. Excellent hemostasis was noted after doing this. I then placed the uterus back within the pelvis and copiously irrigated the pelvis using normal saline. Once again, there was no active bleeding noted from any of my dissection planes. I placed Interceed antiadhesive over my low transverse incision. I then proceeded with removing the Stoney ring retractor and closing the peritoneum using 3-0 Vicryl suture in a running fashion. The rectus muscles were reapproximated using 3-0 Vicryl suture in interrupted fashion. The fascia was reapproximated using 0 Vicryl suture in running fashion and the skin reapproximated using 4-0 Monocryl running subcuticular. Dermabond was applied to incision and sterile dressing with adhesive white tape. The patient tolerated the procedure well and sent to recovery in stable condition. Lap and sponge counts were correct at the end of the procedure. Instrument counts correct as well. 2 grams of Ancef given preoperatively for infection prophylaxis. Job ID: [id number] DocumentID: [id number] Dictated Date: 07/20/2020 13:12:17 Junior Accounting Clerk Date: 07/20/2020 23:41:47 Dictated By: JUAN PENA DO
[2020-07-21 00:35] VITALS: BP 107/64
[2020-07-21] MEDS: CATHETER FLUSH 10 ML SYR IV SCH ×2 (02:28→02:33)
[2020-07-21] MEDS: KETOROLAC 30 MG/ML VIAL IV SCH ×2 (02:33→08:22)
[2020-07-21 04:37] VITALS: BP 107/59
[2020-07-21] MEDS: HYDROcodone/APAP 5 MG/325 MG (LORTAB) TAB PO PRN ×4 (04:37→22:50)
[2020-07-21] MEDS ORDERED: SIMETHICONE 80 MG (MYLICON) CHEW ONE (04:40)
[2020-07-21] MEDS: SIMETHICONE 80 MG (MYLICON) CHEW PO PRN ×4 (04:42→22:49)
[2020-07-21 06:28] LABS: BASOPHILS # (AUTO) 0.1 10^3/uL (0.0-0.1); BASOPHILS % (AUTO) 0 % (0-10); EOSINOPHILS # (AUTO) 0.1 10^3/uL (0.0-0.3); EOSINOPHILS % (AUTO) 1 % (0-10); HEMATOCRIT 33 % (35-52); HEMOGLOBIN 11.2 g/dL (11.5-16.0); LYMPHOCYTES % (AUTO) 15 % (12-44); MEAN CORPUSCULAR HEMOGLOBIN 31 pg (25-34); MEAN CORPUSCULAR HGB CONC 34 g/dL (32-36); MEAN CORPUSCULAR VOLUME 91 fL (80-99); MEAN PLATELET VOLUME 10.7 fL (9.0-12.2); MONOCYTES # (AUTO) 0.9 10^3/uL (0.0-1.0); MONOCYTES % (AUTO) 7 % (0-12); NEUTROPHILS # (AUTO) 10.5 10^3/uL (1.8-7.8); NEUTROPHILS % (AUTO) 77 % (42-75); PLATELET COUNT 182 10^3/uL (130-400); WHITE BLOOD COUNT 13.6 10^3/uL (4.3-11.0)
[2020-07-21 08:15] VITALS: BP 121/62
--- NOTE | 2020-07-21 08:15 | Anesthesia-Regional Post-Op ---
Regional Patient Condition Mental Status: Alert, Oriented x3 Circulation: Same as Pre-Op Sensation: Full Recovery Motor Block: Absent Post Op Complications Complications None Follow Up Care/Instructions Patient Instructions None needed. Anesthesia/Patient Condition Patient is doing well, no complaints, stable vital signs, no apparent adverse anesthesia problems. No complications reported per nursing. D/C home per [facility] Criteria: No JOCELYN POND CRNA Jul 21, 2020 08:15
--- NOTE | 2020-07-21 08:15 | NUR ---
A.M. ASSESSMENT COMPLETED. VSS. CARING FOR IN ROOM.
[2020-07-21] MEDS: DOCUSATE SODIUM 100 MG (COLACE) CAP PO SCH ×2 (08:21→20:38)
--- NOTE | 2020-07-21 09:27 | NUR ---
Rhogam administered, see intervention.
[2020-07-21 12:00] VITALS: BP 111/72
--- NOTE | 2020-07-21 12:00 | NUR ---
OFFERS NO COMPLAINT. RATES PAIN 3/10.
[2020-07-21] MEDS ORDERED: IBUP-844 PO (12:20)
[2020-07-21] MEDS ORDERED: ACHD5005 PO (12:20)
[2020-07-21] MEDS ORDERED: DCS100C PO (12:20)
--- NOTE | 2020-07-21 12:20 | Postpartum Progress Note ---
Note Note Day # Subjective: Patient is without complaints. Ambulating, voiding. Tolerating a regular diet without nausea or vomiting. Normal lochia. Pain is well controlled with oral pain medications. Objective: Physical Exam: General - Alert and oriented, no apparent distress Abdomen - Soft, appropriately tender to palpation, non-distended, fundus firm at umbilicus Extremities - no edema, negative Zaria's bilaterally Incision- c/d/i Assessment: POD 1 RLTCS Acute blood loss anemia Plan: Routine care. Encourage breast feeding. Encourage ambulation. Ferrous sulfate supplementation. Plan for discharge tomorrow Vitals - Labs Vital Signs - I&O Vital Signs Date Time Temp Pulse Resp B/P (MAP) Pulse Ox O2 Delivery O2 Flow Rate FiO2 07/21/20 08:15 36.5 82 18 121/62 (81) 97 Room Air 07/21/20 04:37 36.4 77 18 107/59 (75) 97 Room Air 07/21/20 00:35 36.0 70 18 107/64 (78) 98 Room Air 07/20/20 21:06 36.3 88 18 119/69 (86) 98 Room Air 07/20/20 17:20 36.7 78 18 106/68 (81) 100 Room Air 07/20/20 14:30 36.1 63 16 106/71 (83) 98 Room Air 07/20/20 14:15 36.4 16 108/69 (82) 99 Room Air 07/20/20 14:00 36.3 16 116/65 (82) 98 Room Air 07/20/20 14:00 Room Air 07/20/20 13:45 36.4 16 114/77 (89) 98 Room Air 07/20/20 13:45 Room Air 07/20/20 13:30 Room Air 07/20/20 13:30 36.4 16 109/83 (92) 98 Room Air 07/20/20 13:17 36.6 16 101/62 (75) 95 Room Air 07/20/20 13:17 Room Air 07/20/20 13:17 Room Air I & O 07/21/20 07:00 Intake Total 4250 ml Output Total 2350 ml Balance 1900 ml Labs Laboratory Tests 07/21/20 06:08: White Blood Count 13.6H, Red Blood Count 3.59L, Hemoglobin 11.2L, Hematocrit 33L , Mean Corpuscular Volume 91, Mean Corpuscular Hemoglobin 31, Mean Corpuscular Hemoglobin Concent 34, Red Cell Distribution Width 13.2, Platelet Count 182, Mean Platelet Volume 10.7, Immature Granulocyte % (Auto) 0, Neutrophils (%) (Auto) 77H, Lymphocytes (%) (Auto) 15, Monocytes (%) (Auto) 7, Eosinophils (%) (Auto) 1, Basophils (%) (Auto) 0, Neutrophils # (Auto) 10.5H, Lymphocytes # (Auto) 2.0, Monocytes # (Auto) 0.9, Eosinophils # (Auto) 0.1, Basophils # (Auto) 0.1, Immature Granulocyte # (Auto) 0.1 ROSA PENA DO Jul 21, 2020 12:20 pm
--- NOTE | 2020-07-21 12:21 | Discharge Inst-Women's Service ---
Discharge Inst-Women's Serv Depart Medication/Instructions New, Converted or Re-Newed RX: RX on Chart Final Diagnosis POD 2 RLTCS Problems Reviewed?: Yes Consults/Follow Up Additional Follow Up: Yes Orders/Referrals Dr. Gordon in 7-[address] Harrison in 6 weeks Activity Activity: Activity as Tolerated Driving Instructions: No Driving for 1 Week NO SMOKING: NO SMOKING Nothing Inside Vagina: No Douching, No [place], No Tampons Diet Discharge Diet: No Restrictions Symptoms to Report to : Bleeding Excessive, Pain Increased, Fever Over 101 Degrees F, Vaginal Bleeding Increase, Questions/Concerns For Any Problems or Questions: Contact Your Physician Skin/Wound Care Infection Signs and Symptoms: Increased Redness, Foul Odor of Wound, Increased Drainage, Skin Itchy or Has a Rash, Increased Swelling, Temperature Above 101 F Operative Area Clean and Dry: Keep Incision Clean/Dry Stitches/[place]/Dermabond: Dermabond, Care of Stitches Bathing Instructions: ROSA Campos DO Jul 21, 2020 12:21 pm
[2020-07-21] MEDS: IBUPROFEN 600 MG (MOTRIN) TAB PO SCH ×2 (13:54→20:38)
--- NOTE | 2020-07-21 14:00 | NUR ---
CONTINUES TO CARE FOR IN ROOM. GOOD INTERACTION NOTED.
[2020-07-21 17:00] VITALS: BP 130/75
--- NOTE | 2020-07-21 17:45 | NUR ---
AMBULATING IN THE HALLWAY PUSHING INFANT.
[2020-07-21 20:38] VITALS: BP 107/58
[2020-07-22 03:58] VITALS: BP 108/69
[2020-07-22] MEDS: IBUPROFEN 600 MG (MOTRIN) TAB PO SCH ×2 (03:58→09:57)
--- NOTE | 2020-07-22 06:26 | Postpartum Progress Note ---
Note Note Day # 1 Subjective: Patient is without complaints. Ambulating, voiding. Tolerating a regular diet without nausea or vomiting. Normal lochia. Pain is well controlled with oral pain medications. Objective: Physical Exam: General - Alert and oriented, no apparent distress Abdomen - Soft, appropriately tender to palpation, non-distended, fundus firm at umbilicus Extremities - no edema, negative Zaria's bilaterally Incision- c/d/i Assessment: POD 2 RLTCS Acute blood loss anemia Plan: Routine care. Encourage breast feeding. Encourage ambulation. Ferrous sulfate supplementation. Plan for discharge today Vitals - Labs Vital Signs - I&O Vital Signs Date Time Temp Pulse Resp B/P (MAP) Pulse Ox O2 Delivery O2 Flow Rate FiO2 07/22/20 03:58 36.6 69 18 108/69 (82) 98 Room Air 07/21/20 20:38 36.6 88 18 107/58 (74) 97 Room Air 07/21/20 17:00 36.8 81 18 130/75 (93) 97 Room Air 07/21/20 12:00 36.8 78 18 111/72 (85) 97 Room Air 07/21/20 08:15 36.5 82 18 121/62 (81) 97 Room Air I & O 07/22/20 07:00 Intake Total 1750 ml Balance 1750 ml ROSA PENA DO Jul 22, 2020 06:26
[2020-07-22] MEDS: HYDROcodone/APAP 5 MG/325 MG (LORTAB) TAB PO PRN (07:13)
[2020-07-22] MEDS: DOCUSATE SODIUM 100 MG (COLACE) CAP PO SCH (08:29)
[2020-07-22] MEDS: SIMETHICONE 80 MG (MYLICON) CHEW PO PRN (08:29)
[2020-07-22 08:30] VITALS: BP 120/56
--- NOTE | 2020-07-22 08:30 | NUR ---
A.M. ASSESSMENT COMPLETED. VSS. CARING FOR IN ROOM. GOOD INTERACTION NOTED.
--- NOTE | 2020-07-22 10:40 | NUR ---
DISCHARGE INSTRUCTIONS REVIEWED WITH PT AND COPY GIVEN. STATES UNDERSTANDING OF ALL INSTRUCTIONS AND NEED TO F/U SCHEDULED AND NEEDED.
[2020-07-22 11:50] VITALS: BP 120/56
--- NOTE | 2020-07-22 11:50 | NUR ---
DISMISSED AMB FROM [facility] WITH IN STABLE CONDITION TO AWAITING FAMILY CAR ACC BY [facility] STAFF.
== END 2020-07-22 11:50 | disposition home or self-care (01) | DRG 787 ==
LOC: LDRP 10:15
PROVIDERS: ADMIT Obstetrics & Gynecology; ATTEND Obstetrics & Gynecology
PROC: 10D00Z1 Extraction of Products of Conception, Low, Open Approach (ICD-10-PCS; principal; 2020-07-20 12:35)
DX: O34.211 Maternal care for low transverse scar from previous cesarean delivery (principal); D62 Acute posthemorrhagic anemia; Z3A.39 39 weeks gestation of pregnancy; Z37.0 Single live birth; O90.81 Anemia of the puerperium
CPT/HCPCS: 36415; 83033; 85025; 86850; 86900; 86901; 94664

== ENCOUNTER → 2021-10-25 | Outpatient (CLI) | payer MEDICAID ==
[~2021-10-25] MED LIST changes: +ACHD5005 PO; +DOCU-239 PO; +IBUP-844 PO
== END ==
LOC: LAB FS 08:40
PROVIDERS: ATTEND Registered Nurse Emergency
DX: R19.5 Other fecal abnormalities (principal)
CPT/HCPCS: 87177

== ENCOUNTER → 2022-04-10 | Outpatient (CLI) | payer MEDICAID | LOC: LABNPT 16:00 | PROVIDERS: ATTEND Registered Nurse Emergency | DX: N39.0 Urinary tract infection, site not specified (principal) | CPT/HCPCS: 87077; 87088 ==